=== PATIENT | female | born 1990 | race Caucasian/White ===

== ENCOUNTER 2022-11-24 15:53 | Emergency (ER) | payer SELFPAY ==
[2022-11-24] MEDS ORDERED: LORAZEPAM 1 MG TABLET ONE ×2 (16:54→21:21)
[2022-11-24 21:02] LABS: Absolute Lymphocytes (CBC) 2.6 K/uL (0.7-4.9); Hematocrit 35.1 % (36.0-45.0); MPV 6.4 fL (7.6-11.3); Platelets 341 thou/uL (152-406); RBC Red Blood Cell Count 3.85 M/uL (3.86-4.86); Specific Gravity 1.023 (1.005-1.030); Urine Bilirubin NEGATIVE (Negative); Urine Blood Negative (Negative); Urine Clarity Clear (Clear); Urine Color Light-Yellow (Yellow); Urine Glucose NEGATIVE (Negative); Urine Protein NEGATIVE (Negative); Urine Urobilinogen Normal (Normal)
[2022-11-24 21:06] LABS: Specific Gravity 1.023 (1.005-1.030)
[2022-11-24 21:12] LABS: Barbiturates NEGATIVE (NEGATIVE); Benzodiazepines NEGATIVE (NEGATIVE); Cocaine NEGATIVE (NEGATIVE); METHAMPHETAM NEGATIVE (NEGATIVE); Methadone NEGATIVE (NEGATIVE); Opiates NEGATIVE (NEGATIVE); Phencyclidine NEGATIVE (NEGATIVE); THC Cannibis NEGATIVE (NEGATIVE)
[2022-11-24 21:14] LABS: Protime INR 1.03
[2022-11-24 21:20] LABS: ALT/SGPT 16 U/L (13-56); AST/SGOT 12 U/L (15-37); Albumin 4.5 g/dL (3.4-5.0); Alkaline Phosphatase 66 U/L (45-117); BUN Blood Urea Nitrogen 17 mg/dL (7-18); Bicarbonate 25 mEq/L (21-32); Bilirubin Total 0.3 mg/dL (0.2-1.0); Glomerular Filtration Rate 119 ml/min (=/>90); Glucose Level 103 mg/dL (74-106); Potassium 3.5 mEq/L (3.5-5.1); Protein, Total 8.1 g/dL (6.4-8.2); Sodium Level 137 mEq/L (136-145)
[2022-11-24 21:21] LABS: Bilirubin Direct < 0.1 mg/dL (0-0.2); Bilirubin Indirect, Calculated ND mg/dL (0.2-0.8)
[2022-11-24] MEDS ORDERED: hydrOXYzine HCL 25 MG TAB ONE (21:55)
--- NOTE | 2022-11-25 01:13 | EDPHYS ---
Physician Documentation [facility] Name: Courtney Guardado Age: 31 yrs Sex: Female : 1990 Arrival Date: 11/24/2022 Time: 15:53 Bed 12 Private MD: ED Physician Shadi Ryder HPI: 11/24 16:24 This 31 yrs old Female presents to ER via Unassigned with complaints of Anxiety. kb 16:24 The patient presents to the emergency department with anxiety. Onset: The kb symptoms/episode began/occurred 3 day(s) ago. Past psychiatric history: Prior diagnosis: depression. Associated signs and symptoms: Pertinent positives; anxiety. Severity of symptoms: At their worst the symptoms were moderate in the emergency department the symptoms are unchanged. The patient has experienced similar episodes in the past. The patient has not recently seen a physician. Patient is a 31-year-old female who presents for panic attacks that have been going on for 3 days. States she has a history of anxiety and depression, previously prescribed Prozac 40 mg p.o. daily but was unable to afford it so she quit taking it about a year ago. States she does not have suicidal or homicidal ideations but also feels that she should not be alone. States she is stressed out and that is what is bringing on her panic attacks.. Historical: - Allergies: 16:38 No Known Allergies; cm10 - Home Meds: 16:38 None [Active]; cm10 - PMHx: 16:38 Anxiety; Depressive disorder; cm10 - PSHx: 16:38 None; cm10 - Immunization history:: Adult Immunizations unknown. - Social history:: Smoking status: Patient denies any tobacco usage or history of. ROS: 16:25 Constitutional: Negative for fever, chills, and weight loss. kb 16:25 Psych: Positive for anxiety. 16:25 All other systems are negative. Exam: 16:25 Constitutional: This is a well developed, well nourished patient who is awake, alert, kb and in no acute distress. Head/Face: Normocephalic, atraumatic. ENT: Moist Mucous membranes Cardiovascular: Regular rate and rhythm with a normal S1 and S2. No gallops, murmurs, or rubs. No pulse deficits. Respiratory: Respirations even and unlabored. No increased work of breathing. Talking in full sentences Skin: Warm, dry with normal turgor. Normal color. MS/ Extremity: Pulses equal, no cyanosis. Neurovascular intact. Full, normal range of motion. Neuro: Awake and alert, GCS 15, oriented to person, place, time, and situation. Moves all extremities. Normal gait. 16:25 Psych: Behavior/mood is cooperative, anxious, Affect is animated, Oriented to person, place, time, Patient has no thoughts/intents to harm self or others. 23:12 ECG was reviewed by the Attending Physician. maya Vital Signs: 16:36 BP 140 / 84; Pulse 106; Resp 18; Temp 98.2; Pulse Ox 100% ; Weight 53.52 kg; Height 5 cm10 ft. 4 in. ; 21:27 BP 135 / 85; Pulse 91; Resp 18; Temp 98.5(O); Pulse Ox 100% on R/A; kd3 22:33 BP 129 / 83; Pulse 86; Resp 18; Temp 99(TE); Pulse Ox 100% ; kd3 23:36 BP 113 / 69; Pulse 81; Resp 16; Pulse Ox 100% on R/A; kd3 16:36 Body Mass Index 20.25 (53.52 kg, 162.56 cm) cm10 MDM: 15:58 Patient medically screened. 16:26 Differential diagnosis: depression, anxiety, acute stress reaction, panic attack. Data maya reviewed: vital signs, nurses notes. 21:41 ED course: Pt medically cleared. [facility] called out for evaluation. maya 11/25 01:11 Management of patient was discussed with the following: Behavioral Health Provider: maya [facility] recommends outpatient treatment and has pt set up for follow up. Counseling: I had a detailed discussion with the patient and/or guardian regarding the historical points, exam findings, and any diagnostic results supporting the discharge/admit diagnosis, lab results, the need for outpatient follow up, a psychiatrist, to return to the emergency department if symptoms worsen or persist or if there are any questions or concerns that arise at home. 11/24 16:11 Order name: Acetaminophen; Complete Time: 21:34 maya 11/24 16:11 Order name: Basic Metabolic Panel; Complete Time: 21:34 maya 11/24 16:11 Order name: CBC with Diff; Complete Time: 21:14 maya 11/24 16:11 Order name: ETOH Level; Complete Time: 21:18 kb 11/24 16:11 Order name: Hepatic Function; Complete Time: 21:34 kb 11/24 16:11 Order name: PT-INR; Complete Time: 21:15 kb 11/24 16:11 Order name: Test, Urine; Complete Time: 21:08 kb 11/24 16:11 Order name: Ptt, Activated; Complete Time: 21:15 kb 11/24 16:11 Order name: Salicylate; Complete Time: 21:15 kb 11/24 16:11 Order name: Urinalysis w/ reflexes; Complete Time: 21:08 kb 11/24 16:11 Order name: Urine Drug Screen; Complete Time: 21:15 kb 11/24 16:11 Order name: EKG; Complete Time: 16:11 kb 11/24 16:11 Order name: EKG - Nurse/Tech; Complete Time: 21:16 kb 11/24 16:11 Order name: IV Saline Lock; Complete Time: 20:54 kb 11/24 16:11 Order name: Labs collected and sent; Complete Time: 20:54 kb 11/24 16:11 Order name: Suicide Screening ([place]); Complete Time: 21:28 kb EC/16 23:12 Rate is 92 beats/min. Rhythm is regular. QRS [place] is Normal. CT interval is normal at kb 132 msec. QRS interval is normal at 76 msec. QT interval is normal at 450 msec. Administered Medications: 16:46 Drug: LORazepam PO 1 mg Route: PO; cm10 21:50 Drug: hydrOXYzine PO 25 mg Route: PO; kd3 Disposition Summary: 11/25/22 01:12 Discharge Ordered Location: Home kb Condition: Stable kb Diagnosis - Anxiety disorder, unspecified kb - Acute stress reaction kb Followup: kb - With: Emergency Department - When: As needed - Reason: Worsening of condition Followup: kb - With: Private Physician - When: 2 - 3 days - Reason: Recheck today's complaints, Continuance of care, Re-evaluation by your physician Discharge Instructions: - Discharge Summary Sheet kb - Panic Attack, [id number] kb Forms: - Medication Reconciliation Form kb - Thank You Letter kb - Antibiotic Education kb - Prescription Opioid Use kb - Patient Portal Instructions kb - Leadership Thank You Letter kb Signatures: Dispatcher [employer] Annie Richardson, MORGAN-C BARGE ENGINEER-Mayra Presley RN RN kd3 Tricia Rodriguez RN RN cm10 Corrections: (The following items were deleted from the chart) 16: Allergies: No Known Allergies; cm10 cm10 16: Home Meds: None; cm10 cm10 : PMHx: None; cm10 cm10 : PSHx: None; cm10 cm10 16: Immunization history: Adult Immunizations unknown, cm10 cm10 16: Social history: Smoking status: unknown cm10 cm10
--- NOTE | 2022-11-25 01:13 | ER ---
Nurse's Notes [facility] Name: Courtney Guardado Age: 31 yrs Sex: Female : 1990 Arrival Date: 11/24/2022 Time: 15:53 Bed 12 Private MD: Diagnosis: Anxiety disorder, unspecified;Acute stress reaction Presentation: 11/24 16:36 Chief complaint: Patient states: Panic attack X3 days. When asked if suicidal, pt cm10 states, "I don't think that I should be alone.". Coronavirus screen: Vaccine status: Patient reports receiving the 2nd dose of the covid vaccine. Ebola Screen: Patient denies travel to an Ebola-affected area in the 21 days before illness onset. No symptoms or risks identified at this time. Initial Sepsis Screen: Does the patient meet any 2 criteria? No. Patient's initial sepsis screen is negative. Does the patient have a suspected source of infection? No. Patient's initial sepsis screen is negative. Risk Assessment: Do you want to hurt yourself or someone else? Other: Pt states, "I don't think that I should be alone.". Onset of symptoms was November 24, 2022. 16:36 Method Of Arrival: Ambulatory cm10 16:36 Acuity: ISMAEL 2 cm10 Triage Assessment: 21:28 General: Appears in no apparent distress. Behavior is anxious. Pain: Denies pain. kd3 Historical: - Allergies: 16:38 No Known Allergies; cm10 - Home Meds: 16:38 None [Active]; cm10 - PMHx: 16:38 Anxiety; Depressive disorder; cm10 - PSHx: 16:38 None; cm10 - Immunization history:: Adult Immunizations unknown. - Social history:: Smoking status: Patient denies any tobacco usage or history of. Screenin:27 [facility] ED Fall Risk Assessment (Adult) History of falling in the last 3 months, kd3 including since admission No falls in past 3 months (0 pts) Confusion or Disorientation No (0 pts) Intoxicated or Sedated No (0 pts) Impaired Gait No (0 pts) Mobility Assist Device Used No (0 pt) Altered Elimination No (0 pt) Score/Fall Risk Level 0 - 2 = Low Risk Maintained a safe environment. Abuse screen: Denies threats or abuse. Denies injuries from another. Nutritional screening: No deficits noted. Tuberculosis screening: No symptoms or risk factors identified. Assessment: 21:28 General: Pt states that she is not having thoughts of harming herself or taking her own kd3 life. Pt reports that the stress is getting her and she is feeling too anxious. . Neuro: Level of Consciousness is awake, alert, obeys commands, Oriented to person, place, time, situation. Cardiovascular: Patient's skin is warm and dry. Respiratory: Airway is patent Trachea midline Respiratory effort is even, unlabored, Respiratory pattern is regular, symmetrical. 21:38 Reassessment: Spoke with Gabrielle at [facility] waiting on a screener to call back. vc1 22:33 General: Pt still reporting anxious feeling, not improving with medications. . Neuro: kd3 Level of Consciousness is awake, alert, obeys commands, Oriented to person, place, time, situation. Cardiovascular: Patient's skin is warm and dry. Respiratory: Airway is patent Trachea midline Respiratory effort is even, unlabored, Respiratory pattern is regular, symmetrical. Vital Signs: 16:36 BP 140 / 84; Pulse 106; Resp 18; Temp 98.2; Pulse Ox 100% ; Weight 53.52 kg; Height 5 cm10 ft. 4 in. ; 21:27 BP 135 / 85; Pulse 91; Resp 18; Temp 98.5(O); Pulse Ox 100% on R/A; kd3 22:33 BP 129 / 83; Pulse 86; Resp 18; Temp 99(TE); Pulse Ox 100% ; kd3 23:36 BP 113 / 69; Pulse 81; Resp 16; Pulse Ox 100% on R/A; kd3 16:36 Body Mass Index 20.25 (53.52 kg, 162.56 cm) cm10 ED Course: 15:55 Patient arrived in ED. rg4 15:55 [facility]C [facility] kb 15:55 Shadi Ryder MD is Attending Physician. kb 16:38 Triage completed. cm10 16:38 Arm band placed on. cm10 20:26 Mayra Schmidt, HARRISON is Primary Nurse. kd3 20:54 Acetaminophen Sent. bc6 20:54 Basic Metabolic Panel Sent. bc6 20:54 CBC with Diff Sent. bc6 20:54 ETOH Level Sent. bc6 20:54 Hepatic Function Sent. bc6 20:54 PT-INR Sent. bc6 20:54 Test, Urine Sent. bc6 20:54 Ptt, Activated Sent. bc6 20:54 Salicylate Sent. bc6 20:54 Urinalysis w/ reflexes Sent. bc6 20:54 Urine Drug Screen Sent. bc6 20:54 Inserted saline lock: 20 gauge in right antecubital area, using aseptic technique. bc6 Blood collected. 21:28 Patient has correct armband on for positive identification. Provided Education on: . kd3 Administered Medications: 16:46 Drug: LORazepam PO 1 mg Route: PO; cm10 21:50 Drug: hydrOXYzine PO 25 mg Route: PO; kd3 Medication: 21:28 VIS not applicable for this client. kd3 Outcome: 11/25 01:12 Discharge ordered by . kb 01:28 Patient left the ED. kl Signatures: Annie Montanez, SURGICAL INSTRUMENT MECHANIC-C SURGICAL INSTRUMENT MECHANIC-Presleyb Ping Stokes, RN RN Mary Archibald4 Mayra Schmidt RN RN kd3 Zuleyma Anderson RN RN vc1 Hilary Ricks bc6 Tricia Rodriguez RN RN cm10 Corrections: (The following items were deleted from the chart) 11/24 16:25 16:23 Allergies: No Known Allergies; cm10 cm10 16:25 16:23 Home Meds: None; cm10 cm10 16:25 16:23 PMHx: None; cm10 cm10 16:25 16:23 PSHx: None; cm10 cm10 16:25 16:23 Immunization history: Adult Immunizations unknown, cm10 cm10 16:25 16:23 Social history: Smoking status: unknown cm10 cm10
[2022-11-25 02:08] VITALS: O2SAT 100
[2022-11-25 02:15] VITALS: TEMP 99
[2022-11-25 02:16] VITALS: BP 113/69
--- NOTE | 2022-11-25 17:29 | EKG ---
Test Date: 2022-11-24 Test Time: 21:15:13 Lock Tender Chief Operator: DHARA MEASUREMENT RESULTS: Intervals: Rate: 92 NC: 132 QRSD: 76 QT: 364 QTc: 450 [place]: P: 75 NC: 132 QRS: 76 T: 61 INTERPRETIVE STATEMENTS: Normal sinus rhythm Normal ECG No previous ECG available for comparison Electronically Signed On 11-25-22 17:27:25 CDT by Bob Mills
== END 2022-11-25 01:28 | disposition home or self-care (01) ==
LOC: ER 15:53
DX: F43.0 Acute stress reaction (principal)
CPT/HCPCS: 36415; 80048; 80076; 80143; 80179; 80307; 81003; 81025; 82077; 85025; 85610; 85730; 93005; 99283

== ENCOUNTER 2023-12-11 13:32 | Emergency (ER) | payer SELFPAY ==
--- OUTSIDE RECORDS SUMMARY | 2023-12-11 13:35 | XMS REPORT | Continuity of Care Document ---
Author Name Unknown Address [address] [place] [address] [facility] thconnect Address [address] [place] [address] Care Team Providers Care Church Supervisor Name Role Phone Pcp, Patient Does Not Have A Primary Care Physic franny OLEG GRAHAM Attending Clinician Unavailable Babatunde ABBOTT Attending Clinician Unavailable Babatunde Medina Attending Clinician [phone] LUKE ALTAMIRANO Attending Clinician Unavailable CONSTANZA KAISER Attending Clinician Unavailable Phil Anne DO Attending Clinician [phone] PHIL ANNE Attending Clinician Unavailable OLEG GRAHAM Admitting Clinician Unavailable LUKE ALTAMIRANO Admitting Clinician Unavailable Payers Payer Name Policy Type Policy Number Effective Date Expirati on Date Source [employer] [place] [employer] [id number] 2022 00:00:00 [facility] [id number] 00:00:00 Allergies, Adverse Reactions, Alerts Allergy Name Allergy Type Status Severity Reaction(s) Onset Date Inactive Date Treating Clinician Comments Source NO KNOWN ALLERGIE S Drug [facility] Social History Social Habit Start Date Stop Date Quantity Comments Source Gender identity Univ [facility] Sex [facility] At 1990 00:00:1990 00:00:00 [facility] Smoking Status Start Date Stop Date Source Tobacco smoking consumption unknown [facility] Medications Ordered Medication Name Filled Medication Name Start Date Stop Date Current Medication? Ordering Clinician Indication Dosage Frequency Signature (SIG) Comments Components Source hydrOXYzine (ATARAX) tablet 25 mg 12-07 20:30: 00 12-07 20:23 :00 No 25mg 25 mg, Oral, ONCE, 1 dose, On Tue12/07/22 at 1530, SUSAN [facility] hydrOXYzine 25 mg tablet 12-07 00:00: 00 12-16 04:59 :00 No [id number] 25mg Take 1 tablet by mouth every 6 (six) hours for 30 doses. [facility] clonazePAM (KLONOPIN) tablet 1 mg 11-25 22:30: 00 11-25 21:49 :00 No 1mg 1 mg, Oral, ONCE NOW, 1 dose, On Tue11/25/22 at 1730, Routine [facility] hydrOXYzine 10 mg tablet 11-25 00:00: 00 Yes [id number] 10mg Take 1 tablet by mouth every 6 (six) hours as needed for Anxiety. [facility] Vital Signs Vital Name Observation Time Observation Value Comments S rita Systolic blood pressure 2022-12-07 19:54:00 148 mm[Hg] [facility] Diastolic blood pressure 2022-12-07 19:54:00 85 mm[Hg] [facility] Heart rate 2022-12-07 19:54:00 103 /min [facility] Body temperature 2022-12-07 19:54:00 37.11 Shannan [facility] Respiratory rate 2022-12-07 19:54:00 18 /min [facility] Body height 2022-12-07 19:54:00 162.6 cm [facility] Body weight 2022-12-07 19:54:00 53.524 kg [facility] BMI 2022-12-07 19:54:00 20.25 kg/m2 [facility] Oxygen saturation in Arterial blood by Pulse oximetry 2022-12-07 19:54:00 99 /min [facility] Body temperature 2022-11-25 22:08:36 36.89 Shannan [facility] Systolic blood pressure 2022-11-25 22:07:33 139 mm[Hg] [facility] Diastolic blood pressure 2022-11-25 22:07:33 83 mm[Hg] [facility] Heart rate 2022-11-25 22:07:33 99 /min [facility] Respiratory rate 2022-11-25 22:07:33 18 /min [facility] Oxygen saturation in Arterial blood by Pulse oximetry 2022-11-25 22:07:33 99 /min [facility] Body height 2022-11-25 21:21:00 162.6 cm [facility] Body weight 2022-11-25 21:21:00 53.524 kg [facility] BMI 2022-11-25 21:21:00 20.25 kg/m2 [facility] Procedures Procedure Date / Time Performed Performing Clinicia n Source ASSIGNMENT OF BENEFITS 2022-12-07 20:35:01 Docto r Unassigned, [place] [facility] CONSENT/REFUSAL FOR DIAGNOSIS AND TREATMENT 2022-12-07 19:44:35 Doctor Unassigned, [place] [facility] NOTICE OF PRIVACY PRACTICES 2022-11-25 21:10:04 Doctor Unassigned, [place] [facility] CONSENT/REFUSAL FOR DIAGNOSIS AND TREATMENT 2022-11-25 21:09:09 Doctor Unassigned, [place] [facility] Encounters Start Date/Time End Date/Time Encounter Type Admission Type Attending Clinicians Care Facility Care Department Encounter ID Source 2022-12-07 22:28:00 2022-12-13 14:00:00 Outpatient OLEG GRAHAM [facility] [id number] [facility] 2022-12-07 14:55:00 2022-12-07 15:41:00 Emergency X Babatunde ABBOTT [facility] ERT [id number] [facility] 2022-12-07 14:55:00 2022-12-07 15:41:00 Emergency Babatunde Abbott [facility] [id number] [facility] 2022-11-28 17:05:00 2022-11-30 13:23:00 Outpatient LUKE ALTAMIRANO [facility] [id number] [facility] 2022-11-26 09:22:00 2022-11-28 16:30:00 Emergency CONSTANZA RIVERO [facility] [id number] [facility] 2022-11-25 16:23:00 2022-11-25 17:16:00 Emergency Phil Anne [facility] [id number] [facility] 2022-11-25 16:23:00 2022-11-25 17:16:00 Emergency X PHIL ANNE [facility] ERT [id number] [facility] Notes Date/Time Note Provider Source 2022-12-07 15:29:17 Formatting of this n ote might be different from the original. PT D/C home. GCS15, VS stable, no ataxia noted. Given one prescription and D/C paperwork. Pt ambulatory at time of discharge. Pt educated on anxiety, coping mechanisms, med usage, follow up care with therapist, s/s worsening condition. Pt verbalized understanding. Work/school note was not given. [facility] 2022-12-07 14:53:47 Formatting of this n ote might be different from the original. "I can't get my panic attacks under control. I just got out of the psych center. I have hydroxyzine but it doesn't touch it." Rachael Ruffin RN [facility] 2022-11-25 16:51:18 Formatting of this n ote might be different from the original. Business office at bedside Katy Lovell RN [facility] 2022-11-25 16:15:41 Formatting of this n ote might be different from the original. Pt c/o panic attacks over the last four days due to increased stress. States that she was seen at [facility] ER yesterday and was discharged to follow-up with [facility]. Went to [facility] today and was told "they couldn't do anything for me and that I needed to come to the ER." Reports being under a lot of stress. [facility]
--- NOTE | 2023-12-11 14:23 | EDPHYS ---
Physician Documentation [facility] Name: Courtney Guardado Age: 32 yrs Sex: Female : 1990 Arrival Date: 12/11/2023 Time: 13:32 Bed 11 Private MD: ED Physician Marilee Mason HPI: 12/10 14:25 This 32 yrs old Female presents to ER via Ambulatory with complaints of Insect Bite - sb4 left thigh. 14:31 Onset: The symptoms/episode began/occurred 3 day(s) ago. The patient has not sb4 experienced similar symptoms in the past. possible insect bite left lateral thigh 3 days ago. says it itches. denies pain. no fever or discharge. 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 - Infectious Disease History:: Denies. - Social history:: Smoking status: Patient denies any tobacco usage or history of. ROS: 14:31 Constitutional: Negative for fever, chills, and weight loss, sb4 14:31 Skin: Positive for per HPI, 14:31 All other systems are negative, Exam: 14:31 Constitutional: This is a well developed, well nourished patient who is awake, alert, sb4 and in no acute distress. Head/Face: Normocephalic, atraumatic. Eyes: Extra-ocular motions intact. Periorbital areas with no swelling, redness, or edema. ENT: Mucous membranes moist. 14:31 Skin: ringworm, on the lateral aspect of left thigh, Vital Signs: 14:13 BP 135 / 65; Pulse 71; Resp 17; Temp 98; Pulse Ox 98% ; Weight 58.97 kg; Height 5 ft. 4 ap3 in. ; Pain 3/10; 14:13 Body Mass Index 22.31 (58.97 kg, 162.56 cm) ap3 14:13 Pain Scale: Adult ap3 MDM: 13:43 Patient medically screened. sb4 14:31 Data reviewed: vital signs, nurses notes, and as a result, I will discharge patient. sb4 Counseling: I had a detailed discussion with the patient and/or guardian regarding the historical points, exam findings, and any diagnostic results supporting the discharge/admit diagnosis, to return to the emergency department if symptoms worsen or persist or if there are any questions or concerns that arise at home. Administered Medications: No medications were administered Disposition Summary: 12/11/23 14:22 Discharge Ordered Notes: Location: Home sb4 Problem: new sb4 Symptoms: are unchanged sb4 Condition: Stable sb4 Diagnosis - Dermatophytosis, unspecified sb4 Followup: sb4 - With: Private Physician - When: As needed - Reason: Recheck today's complaints, Re-evaluation by your physician Discharge Instructions: - Discharge Summary Sheet sb4 - Body Ringworm sb4 Forms: - Patient Portal Instructions sb4 - Leadership Thank You Letter sb4 Prescriptions: - Clotrimazole 1 % Topical Cream - Apply to affected area 1 application TOPICAL route every 12 hours; 15 gram; sb4 Refills: 0, Product Selection Permitted Signatures: Hailey Rodas RN RN ap3 Jessica Morales PA-C PA-C sb4
--- NOTE | 2023-12-11 14:23 | ER ---
Nurse's Notes [facility] Name: Courtney Guardado Age: 32 yrs Sex: Female : 1990 Arrival Date: 12/11/2023 Time: 13:32 Bed 11 Private MD: Diagnosis: Dermatophytosis, unspecified Presentation: 12/10 14:13 Chief complaint: Patient states: she has what she believes to be a spider bite on the ap3 outside of her left leg. patient reports a wound that has been present for approx 3 days. patient reports pain as a 3/10 on the pain scale. patient states the area itches. Coronavirus screen: At this time, the client does not indicate any symptoms associated with coronavirus-19. Ebola Screen: No symptoms or risks identified at this time. Initial Sepsis Screen: Does the patient meet any 2 criteria? No. Patient's initial sepsis screen is negative. Does the patient have a suspected source of infection? No. Patient's initial sepsis screen is negative. Risk Assessment: Do you want to hurt yourself or someone else? Patient reports no desire to harm self or others. Onset of symptoms was December 08, 2023. 14:13 Method Of Arrival: Ambulatory ap3 14:13 Acuity: ISMAEL 4 ap3 Triage Assessment: 14:14 Bite description: bite sustained to left hip by an unknown animal, animal information: ap3 vaccination(s) is not applicable. General: Appears in no apparent distress. Behavior is calm, cooperative, appropriate for age. Pain: Complains of pain in left hip Pain currently is 3 out of 10 on a pain scale. Neuro: Level of Consciousness is awake, alert, obeys commands, Oriented to person, place, time, situation, Appropriate for age. Cardiovascular: Patient's skin is warm and dry. Respiratory: Airway is patent Respiratory effort is even, unlabored, Respiratory pattern is regular, symmetrical. 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 - Infectious Disease History:: Denies. - Social history:: Smoking status: Patient denies any tobacco usage or history of. Screenin:15 [facility] ED Fall Risk Assessment (Adult) History of falling in the last 3 months, ap3 including since admission No falls in past 3 months (0 pts) Confusion or Disorientation No (0 pts) Intoxicated or Sedated No (0 pts) Impaired Gait No (0 pts) Mobility Assist Device Used No (0 pt) Altered Elimination No (0 pt) Score/Fall Risk Level 0 - 2 = Low Risk Oriented to surroundings, Maintained a safe environment, Educated pt \T\ family on fall prevention, incl call for assistance when getting out of bed, Assessed \T\ reinforced patient's understanding of fall precautions, Hourly rounding (assess needs \T\ fall precautionary measures) done, Used ambulatory aids as needed (educated on \T\ assisted with), Used gait belt as appropriate. Abuse screen: Denies threats or abuse. Nutritional screening: No deficits noted. Tuberculosis screening: No symptoms or risk factors identified. Assessment: 14:40 General: Appears in no apparent distress. Behavior is calm, cooperative. Pain: Denies tl4 pain. Neuro: Level of Consciousness is awake, alert, obeys commands, Oriented to person, place, time, situation. Cardiovascular: Capillary refill < 3 seconds Patient's skin is warm and dry. Respiratory: Airway is patent Respiratory effort is even, unlabored, Respiratory pattern is regular, symmetrical, Breath sounds are clear bilaterally. GI: No deficits noted. No signs and/or symptoms were reported involving the gastrointestinal system. : No deficits noted. No signs and/or symptoms were reported regarding the genitourinary system. EENT: No deficits noted. No signs and/or symptoms were reported regarding the EENT system. Derm: Skin has lesions on red,raised area to left thigh. 14:50 Derm: Skin is pink, warm \T\ dry. tl4 Vital Signs: 14:13 BP 135 / 65; Pulse 71; Resp 17; Temp 98; Pulse Ox 98% ; Weight 58.97 kg; Height 5 ft. 4 ap3 in. ; Pain 3/10; 14:13 Body Mass Index 22.31 (58.97 kg, 162.56 cm) ap3 14:13 Pain Scale: Adult ap3 ED Course: 13:35 Patient arrived in ED. im 13:37 Jessica Morales PA-C is PHCP. sb4 13:37 Marilee Mason MD is Attending Physician. sb4 14:14 Triage completed. ap3 14:15 Arm band placed on right wrist. ap3 14:22 Vinny Velazquez, RN is Primary Nurse. tl4 14:43 No provider procedures requiring assistance completed. Patient did not have IV access tl4 during this emergency room visit. 14:44 Patient has correct armband on for positive identification. Bed in low position. Call tl4 light in reach. Provided Education on: call talbot. Administered Medications: No medications were administered Medication: 14:42 VIS not applicable for this client. tl4 Outcome: 14:22 Discharge ordered by . sb4 14:52 Discharged to home ambulatory, tl4 14:52 Condition: stable 14:52 Discharge instructions given to patient, Instructed on discharge instructions, follow up and referral plans. medication usage, Demonstrated understanding of instructions, follow-up care, medications, Prescriptions given X 1, 14:53 Patient left the ED. tl4 Signatures: Hailey Rodas RN RN ap3 Jessica Morales, CLAU PALuluC sb4 Gardenia Dior Toni, RN RN tl4
[2023-12-11 15:25] VITALS: BP 135/65; TEMP 98; O2SAT 98
== END 2023-12-11 14:53 | disposition home or self-care (01) ==
LOC: ER 13:32
DX: B35.9 Dermatophytosis, unspecified (principal)
CPT/HCPCS: 99283